=== PATIENT | female | born 2000 | race African-American/Black ===

== ENCOUNTER 2020-03-12 17:27 | Emergency (ER) | payer SELFPAY ==
[~2020-03-12] VITALS: Ht 175.3 cm; Wt 64.9 kg
[2020-03-12 17:58] LABS: *BILIRUBIN,URIN NEGATIVE (NEGATIVE); *CLARITY,URINE CLEAR (CLEAR); *COLOR,URINE YELLOW (YELLOW); *KETONES,URINE 1+ (NEGATIVE); *UROBILINOGEN,URINE 0.2 E.U./dl (NORMAL); LEUKOCYTE ESTERASE ,URINE NEGATIVE (NEGATIVE); NITRITE, URINE NEGATIVE (NEGATIVE); UGLUCOSE NEGATIVE (NEGATIVE)
[2020-03-12 18:01] LABS: *BLOOD, URINE TRACE INTACT (NEGATIVE); *URINE HCG, QUAL POSITIVE (NEGATIVE)
--- NOTE | 2020-03-12 18:29 | NUR ---
Dr Ye at the bedside for MSE.
[2020-03-12 18:41] LABS: BASOPHILS % (AUTO) 0.2 % (0.0-2.0); EOSINOPHILS % (AUTO) 0.4 % (0.0-7.0); HEMATOCRIT 38.5 % (31.2-41.9); LYMPHOCYTES # (AUTO) 1.5 K/uL (20.0-40.0); LYMPHOCYTES % (AUTO) 14.1 % (20.5-51.5); MEAN CORPUSCULAR HEMOGLOBIN 30.1 uug (24.7-32.8); MEAN CORPUSCULAR HGB CONC 34 g/dL (32.3-35.6); MEAN CORPUSCULAR VOLUME 89.3 fL (75.5-95.3); MONOCYTES # (AUTO) 0.7 K/uL (2.0-10.0); MONOCYTES % (AUTO) 6.6 % (0.0-11.0); NEUTROPHILS # (AUTO) 8.3 K/uL (1.8-8.9); NEUTROPHILS % (AUTO) 78.7 % (38.5-71.5); PLATELET COUNT (AUTO) 333 K/uL (179-408); RED BLOOD CELL COUNT(AUTO) 4.31 MIL/uL (3.63-4.92); WHITE BLOOD COUNT (AUTO) 10.5 K/uL (3.8-11.8)
[2020-03-12 18:48] LABS: CREATININE 0.9 mg/dL (0.6-1.3); POTASSIUM 4.7 mmol/L (3.5-5.1)
[2020-03-12 18:53] LABS: BILIRUBIN,DIRECT 0.2 mg/dL (0.0-0.2); BILIRUBIN,TOTAL 0.7 mg/dL (0.2-1.0); TOTAL PROTEIN, SERUM 7.7 g/dL (6.4-8.2)
--- NOTE | 2020-03-12 19:06 | NUR ---
Handsoff report given to Jaskaran FOX.
--- NOTE | 2020-03-12 19:30 | NUR ---
Dr. Ye performed pelvic exam, chapperroned by Savi FOX.
[2020-03-12 20:24] LABS: BACTERIA,URINE NONE SEEN /HPF (NONE SEEN); RBC,URINE 0-3 /HPF (0-3); SQUAMOUS EPITHELIAL CELL,UR FEW /HPF (NONE SEEN); WBC,URINE 0-3 /HPF (0-3)
--- NOTE | 2020-03-12 20:40 | NUR ---
Patient discharged to home in stable condition. Written and verbal after care instructions given. Patient verbalizes understanding of instructions. Stressed follow up or return to ER for worsening s/s. Patient out of ER with steady gait, no acute signs of distress, VSS, all belongings taken, provided with copies of lab and ultrasound results.
[2020-03-12] MEDS ORDERED: ACETAMINOPHEN 325 MG TABLET ONE (20:41)
[2020-03-12 20:42] VITALS: BP 115/70
[2020-03-12] MEDS ORDERED: ACETAMINOPHEN 325 MG TABLET PO ONE (20:45)
== END 2020-03-12 20:42 | disposition home or self-care (01) ==
LOC: ER 17:33
DX: O26.891 Other specified pregnancy related conditions, first trimester (principal); Z3A.08 8 weeks gestation of pregnancy; R10.2 Pelvic and perineal pain
CPT/HCPCS: 36415; 76856; 83690; 84703; 85025; A4663